=== PATIENT | female | born 2005 | race Caucasian/White ===

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

== ENCOUNTER → 2025-08-01 16:11 | Outpatient (REF) | payer OTHER, SELFPAY | LOC: RAD 16:11 | DX: J01.90 Acute sinusitis, unspecified (principal) | CPT/HCPCS: 71046 ==